=== PATIENT | male | born 1985 | race Caucasian/White ===

== ENCOUNTER 2017-04-21 16:32 | Emergency (ER) | payer OTHER ==
--- NOTE | 2017-04-21 17:04 | PDOC ---
Rapid Medical Evaluation Time Seen by Provider: 04/21/17 17:03 Medical Evaluation: Allergies Allergy/AdvReac Type Severity Reaction Status Date / Time No Known Allergies Allergy Verified 08/01/16 17:15 04/21/17 17:03 Pt presents with complaint of : low back pain, hx of low back pain, no herniation On brief exam: ambulatory I have ordered the following: none Pt will go to the Emergency Dept for further workup Discharge Disposition - Diagnosis Low back pain - Referrals - Patient Instructions - Post Discharge Activity
[2017-04-21 17:12] VITALS: BP 142/84; PULSE 81; TEMP 98.2; BMI 25.7
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
[2017-04-21] MEDS ORDERED: IBUPROFEN 600 MG TABLET (FP) PO ONE (17:43)
[2017-04-21] MEDS ORDERED: IBUPROFEN 400 MG TABLET (FP) PO ONE (17:50)
== END 2017-04-21 18:01 | disposition home or self-care (01) ==
LOC: JER 16:32 → JERFT 16:32
DX: S39.82XA Other specified injuries of lower back, initial encounter (principal); M54.42 Lumbago with sciatica, left side; V43.52XA Car driver injured in collision with other type car in traffic accident, initial encounter; Y92.414 Local residential or business street as the place of occurrence of the external cause; Y99.0 Civilian activity done for income or pay; Y93.89 Activity, other specified
CPT/HCPCS: 99281-25

== ENCOUNTER 2021-05-06 15:28 | Emergency (ER) | payer OTHER ==
[2021-05-06 15:43] VITALS: BP 154/95; PULSE 94; TEMP 98.9; BMI 31.4
[2021-05-06 21:37] LABS: HIV INTERPRETATION NEGATIVE (NEGATIVE)
== END 2021-05-06 16:31 | disposition home or self-care (01) ==
LOC: FER 15:28
DX: Z77.21 Contact with and (suspected) exposure to potentially hazardous body fluids (principal)
CPT/HCPCS: 36415; 87389; 99283-25

== ENCOUNTER 2021-11-17 16:18 | Emergency (ER) | payer OTHER ==
[2021-11-17 16:34] VITALS: BP 140/89; PULSE 82; TEMP 98.2; BMI 29.2
[2021-11-17] MEDS ORDERED: NAPROXEN 500 MG TABLET PO ONE (16:34)
[2021-11-17] MEDS ORDERED: NAPROXEN 500 MG TABLET ONE (16:54)
== END 2021-11-17 18:13 | disposition home or self-care (01) ==
LOC: FER 16:18
DX: M25.531 Pain in right wrist (principal); M79.641 Pain in right hand; M25.521 Pain in right elbow
CPT/HCPCS: 73070-TC-RT-FY; 73110-TC-RT-FY; 73130-TC-RT-FY; 99284-25